=== PATIENT | male | born 1980 | race Caucasian/White ===

== ENCOUNTER 2017-02-03 11:58 | Emergency (ER) | payer SELFPAY ==
[~2017-02-03] VITALS: Wt 65.8 kg
[~2017-02-03 11:58] MED LIST: ANAPROX DS550 MG PO; AUGMENTIN 875 M1 TA1 PO; MACROBID100 M1 PO; MEDROL DOSEPAK4 MG PO; NKHM PO; PERCOCET 325 MG1 TA2 PO; PYRIDIUM200 MG PO
[2017-02-03 12:15] LABS: BILIRUBIN NEGATIVE (NEGATIVE); BLOOD NEGATIVE (NEGATIVE); CLARITY CLOUDY (CLEAR); COLOR YELLOW (YELLOW); GLUCOSE NEGATIVE (NEGATIVE); KETONE NEGATIVE (NEGATIVE); LEUKO ESTERASE NEGATIVE (NEGATIVE); NITRITE NEGATIVE (NEGATIVE); UROBILINOGEN 0.2 E.U./dl (0.2-1.0)
[2017-02-03 12:35] LABS: BACTERIA TRACE
== END 2017-02-03 12:44 | disposition home or self-care (01) ==
LOC: ED 11:58
PROVIDERS: Nurse Practitioner Family
DX: Z20.2 Contact with and (suspected) exposure to infections with a predominantly sexual mode of transmission (principal); R03.0 Elevated blood-pressure reading, without diagnosis of hypertension; F17.200 Nicotine dependence, unspecified, uncomplicated; Z88.1 Allergy status to other antibiotic agents; Z88.2 Allergy status to sulfonamides

== ENCOUNTER 2019-10-15 22:22 | Emergency (ER) | payer SELFPAY ==
[~2019-10-15] VITALS: Ht 182.8 cm; Wt 72.6 kg
[2019-10-16 00:56] LABS: BASO % 0.2 % (0.0-1.0); EOS # 0.1 10*3/uL (0.0-0.4); EOS % 0.4 % (1.0-4.0); HEMATOCRIT 41.5 % (42.0-52.0); LYMPH # 2.6 10*3/uL (1.3-4.4); LYMPH % 17.1 % (27.0-41.0); MEAN CELL VOLUME 94.5 fl (80.0-94.0); MEAN CORPUSCULAR HGB 31.7 pg (27.0-31.0); MEAN CORPUSCULAR HGB CONC 33.5 g/dl (33.0-37.0); MEAN PLATELET VOLUME 9.3 fl (9.6-12.3); MONO # 0.8 10*3/uL (0.1-1.0); MONO % 5.5 % (3.0-9.0); NEUT # 11.7 10*3/uL (2.3-7.9); NEUT % 76.3 % (47.0-73.0); PLATELET COUNT AUTOMATED 346 10*3/uL (130-400); RED BLOOD COUNT 4.39 10*6/uL (4.50-5.90); RED CELL DISTRI WIDTH 14.3 % (0-14.5); WHITE BLOOD COUNT 15.3 10*3/uL (4.8-10.8)
[2019-10-16 01:10] LABS: ALBUMIN 3.6 gm/dl (3.1-4.5); ALKALINE PHOSPHATASE 54 U/L (45-117); BUN 6 mg/dl (7-24); CHLORIDE 108 mmol/L (98-107); CREATININE 1.05 mg/dL (0.70-1.30); POTASSIUM 3.8 mmol/L (3.5-5.1); SGOT/AST 14 IU/L (3-35); SGPT/ALT 22 U/L (12-78); SODIUM 140 mmol/L (136-145); TOTAL PROTEIN 6.7 gm/dL (6.4-8.2)
== END 2019-10-16 02:56 | disposition short-term general hospital (02) ==
LOC: ED 22:22
PROVIDERS: Nurse Practitioner Family
DX: S02.92XA Unspecified fracture of facial bones, initial encounter for closed fracture (principal); S01.01XA Laceration without foreign body of scalp, initial encounter; Z88.8 Allergy status to other drugs, medicaments and biological substances; Y08.89XA Assault by other specified means, initial encounter; Y93.89 Activity, other specified; Y92.89 Other specified places as the place of occurrence of the external cause; Y99.8 Other external cause status

== ENCOUNTER 2019-10-18 15:12 | Emergency (ER) | payer SELFPAY ==
[~2019-10-18] VITALS: Ht 182.8 cm; Wt 70.3 kg
[2019-10-18] MEDS ORDERED: NORCO 10-325 T1 EACH PO ×2 (17:51→17:53)
[2019-10-18] MEDS ORDERED: ZOFRAN4 MG PO (17:55)
== END 2019-10-18 18:00 | disposition home or self-care (01) ==
LOC: ED 15:12
DX: S02.92XA Unspecified fracture of facial bones, initial encounter for closed fracture (principal); Z88.2 Allergy status to sulfonamides; Y08.89XA Assault by other specified means, initial encounter; Y93.89 Activity, other specified; Y92.89 Other specified places as the place of occurrence of the external cause; Y99.8 Other external cause status